=== PATIENT | male | born 1945 | race Caucasian/White ===

== ENCOUNTER 2017-07-13 10:26 | Emergency (ER) | payer OTHER, MEDICAID ==
[2017-07-13 13:34] LABS: ADD MAN DIFF? NO
[2017-07-13 13:37] LABS: ABNORMAL IP MESSAGE 1; BASOPHILS % 0.2 % (0.0-2.0); EOSINOPHILS # 0.1 10^3/ul (0.0-0.5); EOSINOPHILS % 0.5 % (0.0-7.0); HEMATOCRIT 40.1 % (42.0-52.0); HEMOGLOBIN 12.1 g/dl (14.0-18.0); LYMPHOCYTES # 1.8 10^3/ul (0.8-2.9); LYMPHOCYTES % 10.4 % (15.0-51.0); MEAN CORPUSCULAR HEMOGLOBIN 27.7 pg (29.0-33.0); MEAN CORPUSCULAR HGB CONC 30.2 g/dl (32.0-37.0); MEAN CORPUSCULAR VOLUME 91.8 fl (82.0-101.0); MEAN PLATELET VOLUME 9.4 fl (7.4-10.4); MONOCYTE # 1.6 10^3/ul (0.3-0.9); NEUTROPHIL # 13.7 10^3/ul (1.6-7.5); PLATELET COUNT 456 10^3/UL (140-415); POSITIVE DIFF @See below; RED BLOOD COUNT 4.37 10^6/ul (4.70-6.10); RED CELL DISTRIBUTION WIDTH 13.4 % (11.5-14.5)
[2017-07-13 13:37] LABS: WHITE BLOOD COUNT 17.3 10^3/ul (4.8-10.8)
[2017-07-13 13:41] LABS: ADD UMIC NO; UR ASCORBIC ACID NEGATIVE (NEGATIVE); UR BILIRUBIN (Dip) NEGATIVE (NEGATIVE); UR BLOOD (Dip) NEGATIVE (NEGATIVE); UR CLARITY CLEAR (CLEAR); UR COLOR YELLOW (YELLOW); UR GLUCOSE (Dip) NEGATIVE (NEGATIVE); UR KETONES (Dip) NEGATIVE (NEGATIVE); UR LEUKOCYTE ESTERASE (Dip) NEGATIVE Leu/ul (NEGATIVE); UR NITRITE (Dip) NEGATIVE (NEGATIVE); UR SPECIFIC GRAVITY (Dip) 1.017 (1.003-1.030); UR TOTAL PROTEIN (Dip) NEGATIVE (NEGATIVE); UR UROBILINOGEN (Dip) 2+ mg/dL (NEGATIVE)
[2017-07-13] MEDS: SODIUM CHLORIDE 0.9% 1L BAG IV* (13:47)
[2017-07-13] MEDS: CEFTRIAXONE 1 GM/50 ML (PMX) 50 ML IVPB (13:48)
[2017-07-13 13:49] LABS: HEMOGLOBIN A1C 5.5 % (0-5.9)
[2017-07-13 13:56] LABS: ANION GAP 17 (8-16); BLOOD UREA NITROGEN 17 mg/dl (7-20); CALCIUM 11.2 mg/dl (8.4-10.2); CARBON DIOXIDE 25 mmol/L (21-31); CHLORIDE 102 mmol/L (97-110); CHOLESTEROL 158 mg/dl (100-200); CREATININE 0.99 mg/dl (0.61-1.24); GLUCOSE 130 mg/dl (70-220); HDL CHOLESTEROL 31 mg/dl (31-75); LDL CHOLESTEROL,CALCULATED 92 mg/dl; POTASSIUM 4.3 mmol/L (3.5-5.1); SODIUM 140 mmol/L (135-144); TRIGLYCERIDES 177 mg/dl (0-149)
[2017-07-13 14:00] LABS: AMPHETAMINE/METHAMPHETAMINE Negative (NEGATIVE); BARBITURATES Negative (NEGATIVE); BENZODIAZEPINES Negative (NEGATIVE); CANNABINOIDS Negative (NEGATIVE); COCAINE Negative (NEGATIVE); OPIATES Negative (NEGATIVE)
[2017-07-13 14:04] LABS: INR 1.14; PROTIME 14.8 Sec (11.9-14.9); PT RATIO 1.2
[2017-07-13 14:05] LABS: PARTIAL THROMBOPLASTIN TIME 38.1 Sec (25.0-35.0)
[2017-07-13 14:06] LABS: LACTIC ACID 3.1 mmol/L (0.5-2.0)
[2017-07-13 14:08] LABS: TROPONIN-I < 0.012 ng/ml (0.00-0.12)
[2017-07-13] MEDS: AZITHROMYCIN 500MG/NS (PMX) 250 ML IV (14:54)
== END 2017-07-13 18:32 | disposition short-term general hospital (02) ==
LOC: E/R 10:26
DX: A41.9 Sepsis, unspecified organism (principal); R65.20 Severe sepsis without septic shock; J18.9 Pneumonia, unspecified organism
CPT/HCPCS: 36415; 70450; 71045; 71250; 80048; 80061; 80178; 80307; 81003; 83036; 83605; 84484; 85025; 85610; 85730; 87040; 93005; 96374; 96375; 99291-25